=== PATIENT | male | born 1985 | race Hispanic/Latino ===

== ENCOUNTER 2021-12-15 23:13 | Emergency (ER) | payer OTHER ==
[~2021-12-15] VITALS: Ht 172.7 cm; Wt 111.1 kg
[2021-12-15 23:14] VITALS: BP 127/63
[2021-12-15] MEDS ORDERED: AMOX/CLAV 875/125MG TAB PO ONE (23:30)
[2021-12-15] MEDS ORDERED: TETANUS/DIPHTHERIA TOXOID [ADULT] 0.5 ML VIAL IM ONE (23:30)
[2021-12-15] MEDS ORDERED: AMOX1TAB16 PO (23:32)
== END 2021-12-15 23:57 | disposition home or self-care (01) ==
LOC: EDH 23:13
DX: S61.451A Open bite of right hand, initial encounter (principal); E66.9 Obesity, unspecified; Z68.37 Body mass index [BMI] 37.0-37.9, adult; W54.0XXA Bitten by dog, initial encounter; Y93.89 Activity, other specified; Y92.89 Other specified places as the place of occurrence of the external cause; Y99.8 Other external cause status
CPT/HCPCS: 73130; 90471; 90714